=== PATIENT | male | born 1940 | race Caucasian/White ===

== ENCOUNTER → 2018-09-07 10:58 | Outpatient (CLI) | payer MEDICARE, MEDICAID, SELFPAY ==
[2018-09-07 12:05] LABS: Hemoglobin A1C 5.8 % (0.0-7.0)
[2018-09-07 12:47] LABS: Basophils # 0.1 K/mm3 (0-0.2); Basophils % 0.5 % (0.1-2.0); Eosinophils % 0.5 % (0.1-12.0); Hematocrit 45.1 % (42.0-52.0); Hemoglobin 14.5 g/dL (14.1-18.0); Lymphocytes # 3.4 K/mm3 (0.7-4.5); Lymphocytes % 33.7 K/mm3 (10-50); Mean Corpuscular HGB Conc 32.1 g/dL (31.8-35.4); Mean Corpuscular Volume 96.7 fl (80-94); Mean Platelet Volume 8.1 fl (7.4-10.4); Monocytes # 0.4 K/mm3 (0.1-1.0); Monocytes % 3.6 % (1.7-9.3); Neutrophils # 6.1 K/mm3 (1.8-7.8); Neutrophils % 61.8 % (37.0-80.0); Platelet Count 243 K/mm3 (142-424); Red Blood Count 4.66 M/mm3 (4.60-6.20); Red Cell Distribution Width 14.9 % (11.5-17.5); White Blood Count 9.9 K/mm3 (4.8-10.8)
[2018-09-07 12:58] LABS: Alanine Aminotransferase 16 U/L (12-78); Albumin Level 4.2 gm/dL (3.4-5.0); Aspartate Amino Transferase 16 U/L (15-37); Blood Urea Nitrogen 19 mg/dL (7-18); Calcium 9.2 mg/dL (8.5-10.1); Carbon Dioxide 31 mmol/L (21.0-32.0); Chloride 106 mmol/L (98-107); Creatinine,Serum 1.31 mg/dL (0.70-1.30); Estimated Glomerular Filt Rate 53 ml/min (>60); GFR (African American) 64 ML/MIN (>60); Glucose 190 mg/dL (74-106); Sodium 145 mmol/L (136-145)
[2018-09-07 13:17] LABS: Albumin/Globulin Ratio 1.3 (1.1-1.8); Alkaline Phosphatase 72 U/L (46-116); Bilirubin,Total 1.1 mg/dL (0.2-1.0); C-Reactive Protein < 0.2 mg/L (0.0-0.9); Globulin 3.2 gm/dl (1.3-3.2); Total Protein,Serum 7.4 gm/dL (6.4-8.2)
[2018-09-07 15:15] LABS: Erythrocyte Sedimentation Rate 11 mm/hr (0-20)
== END ==
PROVIDERS: Visit Provider Podiatrist
DX: I73.9 Peripheral vascular disease, unspecified (principal); R60.9 Edema, unspecified; R73.9 Hyperglycemia, unspecified
CPT/HCPCS: 36415; 80053; 83036; 85025; 85651; 86140

== ENCOUNTER → 2019-07-26 06:14 | Outpatient (CLI) | payer MEDICARE, MEDICAID, SELFPAY ==
--- NOTE | 2019-07-26 06:18 | CA_ITS ---
APPROVED REPORT Rail Transit Operator: CT Laterality: Bilateral Study Quality: Adequate Indications: preop/carotid bruit Risk Factors Hypertension: Hyperlipidemia Diabetes Doppler Spectral Velocity Analysis ECA (R) 92.10/ cm/s ECA (L) 84.90/ cm/s dICA (R) 54.00/16.30 cm/s dICA (L) 52.50/19.00 cm/s Wolfgang (R) 41.20/10.70 cm/s Wolfgang (L) 45.00/9.29 cm/s pICA (R) 52.40/13.20 cm/s pICA (L) 53.40/19.50 cm/s dCCA (R) 68.30/10.30 cm/s dCCA (L) 68.50/17.00 cm/s pCCA (R) 81.70/14.90 cm/s pCCA (L) 101.00/11.30 cm/s Vert (R) 40.30/ cm/s Vert (L) 35.20/ cm/s ICA/CCA 0.79 ICA/CCA 0.78 Conclusion Duplex evaluation demonstrates stenosis of the right proximal internal carotid artery in the range of 20-49% Duplex evaluation demonstrates stenosis of the left proximal internal carotid artery in the range of 20-49% Duplex evaluation demonstrates antegrade flow of the bilateral Vertebral Arteries. Electronically signed by : Gordo Donnelly MD 07/26/2019 16:44:29
--- NOTE | 2019-07-26 06:18 | CA_ITS ---
APPROVED REPORT EXAM: Comprehensive 2D, Doppler, and color-flow Echocardiogram Ear Nose Throat Physician: Chelo Linn RDCS Ht: 5 ft 7 in Wt: 172lbs BSA: 1.90 BP: 120/68 mmHg Indications: Abnormal ECG, Shortness of Breath, Fatigue, Hyperlipidemia, Hypertension/HDD 2D Dimensions LVOT 1.90 cm (M/F) 1.5-2.5 M-Mode Dimensions RVDd 3.60 cm (0.9-2.6) LA Diam 3.80 cm (1.9-4.0) LVDd 5.60 cm (3.5-5.7) Ao Diam 3.20 cm (2.0-3.7) LVDs 3.90 cm (3.5-5.7) AV Cusp 2.00 cm (1.5-2.6) IVSd 0.80 cm (0.6-1.1) PWd 0.80 cm (0.6-1.1) EF (Teich) 57.20% FS 30.40% EDV (Teich) 154.00 mL ESV (Teich) 65.90 mL LV Diastology E/A Ratio 1.9 MED E' 5.95 (< 7 cm/sec) E'/MED E' Ratio 15.90 (>14) LAT E' 9.65 (<10 cm/sec) E/LAT E' Ratio 9.80 (>14) Mitral Valve MV E Max Coy. 94.80 (40-130 cm/s) MV A Velocity 50.80 (40-130 cm/s) E/A Ratio 1.90 Tricuspid Valve TR P. Velocity 216.00 cm/s RAP Estimate 10.00 mmHg RVSP 29.00 mmHg Left Ventricle Left atrium is qualitatively moderately enlarged, left ventricle is normal size, mild concentric left ventricular hypertrophy, visually estimated ejection fraction 55% with no regional wall motion abnormality, grade 2 diastolic dysfunction seen with tissue Doppler evidence of raise left atrial pressure. Right Ventricle Right atrium and right ventricle are normal size and contractility. Aortic Valve Aortic valve is thickened and calcified, leaflet continue to display good mobility, there is no aortic stenosis or aortic insufficiency. Mitral Valve Mitral valve leaflets are minimally thickened, there is no mitral stenosis, there is mild mitral regurgitation. Tricuspid Valve Tricuspid valve is grossly normal, there is mild tricuspid regurgitation, tricuspid regurgitation jet velocity is inadequate for calculation of the right ventricular systolic pressure. Pulmonic Valve Pulmonic valve is poorly visualized. Great Vessels Aortic root is normal size. Pericardium No significant pericardial effusion noted. Conclusion 1. Moderately enlarged left atrium, normal left ventricular size, mild concentric left ventricular hypertrophy, visually estimated ejection fraction of 55% with no regional wall motion abnormality, grade 2 diastolic dysfunction seen with tissue Doppler evidence of raise left atrial pressure. 2. Thickened and calcified aortic valve without aortic stenosis aortic insufficiency. 3. Mild mitral and tricuspid regurgitation. 4. No significant pericardial effusion noted. Electronically signed by : Agustín Loyd, 07/27/2019 15:49:29
--- NOTE | 2019-07-26 06:20 | CA_ITS ---
APPROVED REPORT Exam: Pharmacologic Technologist: pedro garvin, Ht: 5 ft 11 in Wt: 160 lbs BSA: 1.92 m2 HR: 59 bpm BP: 176/79 mmHg Rhythm: UNDETERMINED Indications: Pre-OP Medical History Medical History: HTN, Hyperlipidemia Medications: Metoprolol,,,,, Simvastatin,,,,, Allergies: No known drug allergies Cardiac Risk Factors: Hyperlipidemia, FHX of CAD Stress Test Details Test: LEXISCAN HR Resting HR: 67 bpm Max Heart Rate (APMHR): 140 bpm Max HR Achieved: 109 bpm Target HR (85% APMHR): 119 bpm % of APMHR: 77 Recovery HR: 88 bpm BP Resting BP: 176.0/19.0 mmHg Max BP: 195.0/101.0 mmHg Recovery BP: 163.0/83.0 mmHg ECG Resting ECG: UNDETERMINED RHYTHM Clinical Exercise duration: 04:15 min Highest Stage Achieved: Exercise capacity: 1.0 METs Stress ECG Conclusion DURING LEXISCAN INFUSION PATIENT HAD NO SYMPTOMS. FREQUENT PAC'S. OCCASIONAL PVC WITH ONE V.COUPLET. NO SIGNIFICANT ST-T CHANGES. UNREMARKABLE LEXISCAN STRESS. MYOVIEW LEXISCAN IMAGES REPORTED SEPARATELY. Electronically signed by : Agustín Loyd, 07/26/2019 17:03:34
--- NOTE | 2019-07-26 06:20 | NM_ITS ---
APPROVED REPORT Exam: Nuclear Stress Test Indication: SOB, Fatigue, Pre-op, HTN, Family history Patient Location: Outpatient Stress Tech: Mena Tyler AR Tech:Sandrine GloriaSOFÍA RT(R)(N) Ht: 5 ft 11 in Wt: 160 lbs BSA: 1.92 m2 HR: 59 bpm BP: 176/79 mmHg BMI: 22.3 History: SOB, Fatigue, Pre-op, HTN, Family history Procedure: Patient received a 0.4 mg of intravenous Lexiscan, resting heart rate 59 bpm, resting blood pressure 176/79 mmHg, with Lexiscan maximum heart rate achived was 97 bpm which is Less than 85 % of the maximum predicted heart rate and blood pressure was 195/101 mmHg. With Lexiscan, patient denied any complaint of chest pain. Electrocardiogram Resting electrocardiogram shows rhythm is probably atrial fibrillation, with Lexiscan there is less than 1.[address] segment depression noted from the baseline EKG. Cardiac Stress and Resting SPECT Images: Cardiac Stress and Resting SPECT images were obtained using technetium 99m Myoview 30.5 mCi stress and 10.70 mCi at rest. Gated SPECT with analysis of segmental wall motion and calculation of the ejection fraction also done. Cardiac stress and resting SPECT images show mild fixed defect in the inferior wall with normal contractility gated SPECT is likely secondary to soft tissue attenuation, no reversible ischemia seen. Computer derived ejection fraction is 63% with no regional wall motion abnormality, right ventricle is normal size and contractility. Conclusion: 1. The EKG portion of the Lexiscan Myoview is nondiagnostic. 2. No scintigraphic evidence of reversible ischemia seen, computer derived ejection fraction 63% with no regional wall motion abnormality, right ventricle is normal size and contractility. 3. Normal Lexiscan Myoview study. Electronically signed by : Agustín Loyd, 07/26/2019 16:01:24
--- NOTE | 2019-07-26 09:52 | HMH.ITSHM ---
Current Home Medications as stated by this patient Junior Golden or parts sales representative. []simvastatin metoprolol losartan \
== END ==
PROVIDERS: PCP Family Medicine; Visit Provider Internal Medicine Cardiovascular Disease
DX: F17.200 Nicotine dependence, unspecified, uncomplicated (principal); R06.00 Dyspnea, unspecified; R09.89 Other specified symptoms and signs involving the circulatory and respiratory systems; R60.9 Edema, unspecified; R94.31 Abnormal electrocardiogram [ECG] [EKG]; Z01.810 Encounter for preprocedural cardiovascular examination
CPT/HCPCS: 78452; 93017; 93306; 93880; A9502; J2785